=== PATIENT | male | born 1940 | race Caucasian/White ===

== ENCOUNTER 2019-06-01 21:21 | Outpatient (CLI) | payer MEDICARE, OTHER | END 2019-06-01 21:22 | disposition short-term general hospital (02) | LOC: EMS 21:21 | PROVIDERS: ATTEND Surgery | DX: R06.02 Shortness of breath (principal); R50.9 Fever, unspecified; R53.1 Weakness | CPT/HCPCS: A0425; A0427 ==

== ENCOUNTER 2019-06-06 06:29 | Outpatient (CLI) | payer MEDICARE, OTHER | END 2019-06-06 06:30 | disposition short-term general hospital (02) | LOC: EMS 06:29 | PROVIDERS: ATTEND Surgery | DX: R06.00 Dyspnea, unspecified (principal) | CPT/HCPCS: A0425; A0427 ==